=== PATIENT | male | born 1985 | race Hispanic/Latino ===

== ENCOUNTER 2019-10-30 20:32 | Emergency (ER) | payer SELFPAY ==
[2019-10-30] MEDS ORDERED: Ketorolac Tromethamine 60 MG/2 ML VIAL ONE (21:01)
--- NOTE | 2019-10-31 08:05 | RAD ---
LEFT FOOT 3 VIEWS: Date: 10/30/2019 No fracture appreciated. Joints appear normal. A calcaneal spur is present. IMPRESSION: No acute findings. POS: HOME
== END 2019-10-30 21:04 | disposition home or self-care (01) ==
LOC: BURERS 20:32
DX: M02.9 Reactive arthropathy, unspecified (principal); X50.1XXA Overexertion from prolonged static or awkward postures, initial encounter
CPT/HCPCS: 96372; J1885